=== PATIENT | female | born 1995 | race Caucasian/White ===

== ENCOUNTER 2025-07-31 08:01 | Inpatient (IN) ==
[2025-07-31] MEDS ORDERED: OXYTOCIN 30 UNITS/NSS 30 UNITS/500 ML BAG IV PRN (08:04)
[2025-07-31] MEDS ORDERED: LIDOCAINE 1% LOCAL 20 ML VIAL INFIL PRN (08:04)
--- NOTE | 2025-07-31 08:25 | History & Physical Report ---
Date of Service July 31, 2025 Assessment & Plan (1) 40 weeks gestation of : Plan Zamarripa bulb out Pitocin Patient would like epidural Arom when indicated Monitor tracing, category 1 Admission and Anticipated Discharge Date Admission Date: July 31, 2025 History of Present Illness Chief Complaint: IOL Primary Care Provider: Gelacio Duval PA-C 30 yo at 40w5d admitted for IOL for postdates. No complications during per patient. She takes vitamins, Celexa, and pantoprazole throughout , no other medications. Contractions: every 10-15 min Fluid loss: none Bloody show: none FM: present Zamarripa bulb placed yesterday, fell out spontaneously yesterday. Denies CAPUTO, CP, N/V/D. Reports she recently had a viral infection and feels slight SOB which has improved over time. Patient also reports left lower extremity tenderness since 37 weeks . GBS neg, RH+ Allergies Allergy/AdvReac Type Severity Reaction Status Date / Time pollen extracts Allergy Intermediate ITCHY Verified 07/30/25 13:50 EYES, SNEEZING, CONGESTION Iodinated Contrast Media Allergy Mild hives Verified 07/30/25 13:50 MOSQUITO & OTHER INSECT BITES Allergy Severe SEVERE Uncoded 07/30/25 13:50 SWELLING AT SITES Home Medications Medication Instructions Recorded Confirmed Type citalopram 20 mg tablet 20 mg PO QAM 08/30/22 07/31/25 History PNV no.[id number] 1 cap PO DAILY 12/13/24 07/31/25 History [ Gummies] Patient History Medical History History of chicken pox Anxiety IBS (irritable bowel syndrome) Allergic rhinitis Recurrent acute sinusitis Acquired deviated nasal septum Nausea after anesthesia had to stay in hospital longer following adenoidectomy Hx of fracture of clavicle at , "had sx to fix it, still have back and neck pain from this" Hx of chest pain w/palpiations; "due to panic attacks on 06/20/22, taken to [place] ER, unable to be seen-sent home; followed up w/ PCP">"felt it was due to her anxiety/panic attack" History of anxiety Surgical History H/O nasal septoplasty S/P wisdom tooth extraction History of adenoidectomy History of esophagogastroduodenoscopy (EGD) Family History Grandfather (Paternal) Hearing loss Father Hypertension Family/Other Stroke maternal grandparent-patient unsure which one. Grandmother (Paternal) Environmental allergies Asthma Colorectal cancer Mother Environmental allergies Grandfather (Maternal) Heart disease Grandmother (Maternal) Heart disease Other No family history of adverse response to anesthesia No family history of bleeding disorder Denies family history of Ovarian cancer Breast cancer Social History Smoking Status: Never smoker Second Hand Exposure: No; Do You Dip or Chew Tobacco: No; Hx Alcohol Use: Yes Alcohol type: wine Alcohol Intake Frequency: 2-4 x/Month Hx Substance Use: No Preferred Language: [place] Communication Ability: Effective Student Life Advisor Required: No Beliefs That Will Affect Care: None marital status: marital status details: Wes Ureña (28) [phone] Current Living Situation: Spouse Current Living Situation Comment: lives with spouse, cats-spouse changing litter current occupational status: employed 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[employer] Other Information That Helps Us Care for You: No Feels Safe at Home: Yes Safety Concerns: Feels Safe At This Time Assistive Devices: None OB History : 1 Full term: 0 Premature: 0 Total Number of Induced Abortions: 0 Total Number of Spontaneous Abortions: 0 Ectopics: 0 Multiple births: 0 Number of Living Children: 0 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 Skin: warm, dry, intact HEENT: NC/AT, anicteric sclera, conjunctiva without injection, moist mucus membranes Heart: +S1/S2, regular, no m/r/g Lungs: equal air entry bilaterally, no rales/rhonchi/wheezes Abd: +BS, soft, NT/ND, gravid uterus Cervical: 4|70|-3|, uterus soft mid, estimated weight 7-8 lbs Ext: warm, no clubbing/cyanosis or edema Neuro: nonfocal, patient AA&O x 4, speech intact, no facial droop, moving all extremities on command. : FHR baseline 150, moderate variability, accelerations present, decelerations absent Results & Data Vital Signs (Past 12 Hours) Vital Signs Pulse BP 07/31/25 08:18 86 129/77 Laboratory Results OB Labs: Blood Type O Positive 12/20/24 Antibody Screen NEGATIVE 12/20/24 Hgb 12.9 g/dl (12.0-16.0) 05/05/25 Hct 39.7 % (37.0-47.0) 05/05/25 MCV 89.7 fL (80.0-100.0) 12/20/24 Plt Count 315 K/uL (130-400) 12/20/24 Rubella IgG Antibody Equivocal (Immune) L 12/20/24 Treponema pallidum Ab Negative (Negative) 05/05/25 Hep Bs Antigen Negative (Negative) 12/20/24 Hepatitis C Antibody Negative (Negative) 12/20/24 HIV 1&2 Ab/P24 Ag 4thGn Negative (Negative) 12/20/24 Glucose 1 Hr 50 gm 100 mg/dl (70-130) 05/05/25 OB Optional Labs: Chlamydia trachomatis RNA Not Detected (NotDetected) 12/20/24 Neisseria gonorrhoeae RNA Not Detected (NotDetected) 12/20/24 Thyroid Stimulating Hormone (TSH) 1.317 uIu/ml (0.300-4.500) 04/15/24 Labs Reviewed: low risk panorama--[facility] declined carrier screening--[facility] declined afp--[facility] Supervising Physician Co-Signing Physician Notes Resident Physician Supervision Note: I interviewed and examined the patient. Discussed with Dr. Quintana and agree with findings and plan as documented in the note. Any exceptions or clarifications are listed here: None Documented By: Mary Daily, Resident Activity Tracking Resident Involvement: Resident Care Provided Care Provided: OB Delivery
[2025-07-31 09:03] LABS: Hematocrit (blood only) 37.8 % (37.0-47.0); Hemoglobin 13.1 g/dL (12.0-16.0); Mean Corpuscular Hemoglobin 30.6 pg (25.0-34.0); Mean Corpuscular Volume 88.3 fL (80.0-100.0); Platelet Count 240 K/uL (130-400); RDW Standard Deviation 42.3 fL (36.4-46.3); Red Blood Count 4.28 M/uL (4.20-5.40); White Blood Count 13.29 K/ul (4.8-10.8)
[2025-07-31] MEDS: OXYTOCIN 30 UNITS/NSS 30 UNITS/500 ML BAG IV PRN (09:22)
[2025-07-31] MEDS: LACTATED RINGER'S 1,000 ML IV PRN (09:22)
[2025-07-31] MEDS ORDERED: NALOXONE HCL 0.4 MG/1 ML VIAL/CARP IV PRN ×2 (11:54→17:20)
[2025-07-31] MEDS ORDERED: ROPIVACAINE 0.5% PF 5 MG/ML 20 ML VIAL EPI PRN (11:54)
[2025-07-31] MEDS ORDERED: diphenhydrAMINE 50 MG/ML VIAL IV PRN ×2 (11:54→17:20)
[2025-07-31] MEDS ORDERED: fentANYL 2 MCG/ML BUPIVacaine 0.125%-NSS 100ML BAG EPI PRN (11:54)
[2025-07-31] MEDS ORDERED: ONDANSETRON INJ 2 MG/ML 2 ML VIAL IV PRN ×2 (11:54→17:20)
[2025-07-31] MEDS ORDERED: SODIUM CHLORIDE 0.9% PF INJ 10 ML VIAL EPI PRN (11:54)
[2025-07-31] MEDS ORDERED: NALBUPHINE HCL INJ 10 MG/ML AMP IV PRN ×2 (11:54→17:20)
[2025-07-31] MEDS ORDERED: LIDOCAINE 2% MPF LOCAL 5 ML VIAL EPI PRN (11:54)
[2025-07-31] MEDS ORDERED: NALOXONE HCL 1 MG in SODIUM CHLORIDE 0.9% 1,000 ML IV PRN ×2 (11:54→17:20)
--- NOTE | 2025-07-31 11:55 | Anesthesiology Consultation ---
Date of Service July 31, 2025 Assessment & Plan (1) Encounter for pre-operative examination: Chart Review Chart Review: Patient NOT seen in Pre Admission Testing and Acceptable Risk for Labor Epidural Consults Requested none History Height/Weight Height: 5 ft 7 in Weight: 90.718 kg Allergies Allergy/AdvReac Type Severity Reaction Status Date / Time pollen extracts Allergy Intermediate ITCHY Verified 07/30/25 13:50 EYES, SNEEZING, CONGESTION Iodinated Contrast Media Allergy Mild hives Verified 07/30/25 13:50 MOSQUITO & OTHER INSECT BITES Allergy Severe SEVERE Uncoded 07/30/25 13:50 SWELLING AT SITES Medications Home Medications Medication Instructions Recorded Confirmed Last Taken citalopram 20 mg tablet 20 mg PO QAM 08/30/22 07/31/25 07/31/25 PNV no.[id number] 1 cap PO DAILY 12/13/24 07/31/25 07/31/25 [ Gummies] Active Medications Generic Name Dose Route Start Last Admin Trade Name Freq PRN Reason Stop Dose Admin Oxytocin 30 units in 500 mls @ 4 mls/hr 07/31/25 08:04 07/31/25 11:15 Pitocin 30 Units/Nss IV 08/02/25 08:03 0.24 units/hr .Q24H PRN 4 mls/hr Labor Induction/Augmentation Titration Protocol 0.24 UNITS/HR Lactated Ringer's 1,000 mls @ 125 mls/hr 07/31/25 08:04 07/31/25 10:08 Lr IV 08/02/25 08:03 125 mls/hr .Q8H PRN Infusion L&D Protocol Protocol Past Medical History Medical History History of chicken pox Anxiety IBS (irritable bowel syndrome) Allergic rhinitis Recurrent acute sinusitis Acquired deviated nasal septum Nausea after anesthesia had to stay in hospital longer following adenoidectomy Hx of fracture of clavicle at , "had sx to fix it, still have back and neck pain from this" Hx of chest pain w/palpiations; "due to panic attacks on 06/20/22, taken to [place] ER, unable to be seen-sent home; followed up w/ PCP">"felt it was due to her anxiety/panic attack" History of anxiety Past Family History Family History Grandfather (Paternal) Hearing loss Father Hypertension Family/Other Stroke maternal grandparent-patient unsure which one. Grandmother (Paternal) Environmental allergies Asthma Colorectal cancer Mother Environmental allergies Grandfather (Maternal) Heart disease Grandmother (Maternal) Heart disease Other No family history of adverse response to anesthesia No family history of bleeding disorder Denies family history of Ovarian cancer Breast cancer Past Surgical History Surgical History H/O nasal septoplasty S/P wisdom tooth extraction History of adenoidectomy History of esophagogastroduodenoscopy (EGD) Social History Smoking Status: Never smoker Do You Dip or Chew Tobacco: No Hx Alcohol Use: Yes Alcohol type: wine alcohol intake frequency: holidays/special occasions only Hx Substance Use: No substance use type: does not use Physical Exam Vital Signs Last Vital Signs Temp 36.9 C 07/31/25 08:20 Pulse 86 07/31/25 08:18 Resp 16 07/31/25 08:20 BP 129/77 07/31/25 08:18 Testing Laboratory Results 07/31/25 08:44
[2025-07-31] MEDS: LIDOCAINE 2%/EPINEPHRINE 1:200,000 20 ML PF EPI STA (12:31)
[2025-07-31] MEDS: BUPIVACAINE 0.25% PF 30 ML VIAL EPI PRN (12:31)
[2025-07-31] MEDS: fentANYL 2 MCG/ML BUPIVacaine 0.125%-NSS 100ML BAG ONE (12:32)
[2025-07-31] MEDS: LIDOCAINE 2%/EPINEPHRINE 1:200,000 20 ML PF ONE (12:32)
[2025-07-31] MEDS: SODIUM CHLORIDE 0.9% PF INJ 10 ML VIAL ONE (13:13)
[2025-07-31] MEDS: BUPIVACAINE 0.25% PF 30 ML VIAL ONE (13:13)
[2025-07-31] MEDS: SODIUM CHLORIDE 0.9% PF INJ 10 ML VIAL EPI STA (13:14)
[2025-07-31] MEDS: BUPIVACAINE 0.25% PF 30 ML VIAL EPI STA (13:14)
--- NOTE | 2025-07-31 16:01 | History & Physical Bridge Note ---
Date of Service July 31, 2025 History & Physical Bridge Note I have examined the patient, reviewed the History & Physical and in the interval since the performance of the History & Physical I have noted the following changes of clinical significance: Prolonged deceleration of FHT - since this is the 3rd episode of this, unable to give pitocin to induce labor, will proceed to OR. Discussed consent with patient earlier after last decel, will move to OR now.
[2025-07-31] MEDS ORDERED: LIDOCAINE 2%/EPINEPHRINE 1:200,000 20 ML PF ONE (16:02)
[2025-07-31] MEDS: CITRIC ACID/SODIUM CITRATE 15 ML UDC PO STA (16:03)
[2025-07-31] MEDS: AZITHROMYCIN 500 MG/255 ML BAG IV ONE (16:22)
[2025-07-31] MEDS ORDERED: DEXAMETHASONE SOD INJ 4 MG/ML VIAL ONE (16:24)
[2025-07-31] MEDS ORDERED: ONDANSETRON INJ 2 MG/ML 2 ML VIAL ONE (16:24)
[2025-07-31] MEDS ORDERED: PHENYLEPHRINE HCL 25 MG/250 ML NSS IV ONE (16:24)
[2025-07-31] MEDS ORDERED: PHENYLEPHRINE 100MCG/ML 5ML SYR ONE (16:24)
[2025-07-31] MEDS ORDERED: MoRPHine SULFATE PF 1 MG/ML 10 ML AMP/VIAL ONE (16:28)
[2025-07-31] MEDS ORDERED: ceFAZolin 330 MG/ML 1 GM VIAL ONE (16:29)
[2025-07-31 16:58] LABS: Base Excess Cord Arterial Bld 0.1 mEq/L (-9-1.8); CO2 Cord Arterial Blood 60 mmHg (39.1-73.5); HCO3 Cord Arterial Blood 28 mmol/L (19.7-28.5); Oxygen Sat Cord Arterial Blood < 60.0 % (<60); PO2 Cord Arterial Blood < 20 mmHg (4.1-31.7); pH Cord Arterial Blood 7.28 (7.1-7.38)
[2025-07-31 17:00] LABS: Base Excess Cord Venous Blood -0.7 mEq/L (-7.7-1.9); Cord Venous Blood PO2 32 mmHg (14.1-43.3); O2 Saturation Cord Venous Bld 63.9 % (<68)
[2025-07-31] MEDS: OXYTOCIN 20 UNITS/LR 1,002 ML IV SCH (17:00)
--- NOTE | 2025-07-31 17:19 | Anesthesiology Progress Note ---
Date of Service July 31, 2025 Anesthesia Post Procedure Vital Signs Vital Signs: Temp Pulse Resp BP Pulse Ox 07/31/25 17:14 96 07/31/25 17:14 84 07/31/25 17:14 92 07/31/25 17:14 87 07/31/25 17:13 82 07/31/25 17:13 114/55 L 07/31/25 16:05 100 07/31/25 16:05 98 H 07/31/25 16:00 98 07/31/25 16:00 100 H 07/31/25 15:55 96 07/31/25 15:55 110 H 07/31/25 15:50 99 07/31/25 15:50 99 H 07/31/25 15:49 94 H 07/31/25 15:49 128/70 07/31/25 15:45 98 07/31/25 15:45 119 H 07/31/25 15:40 99 07/31/25 15:40 104 H 07/31/25 15:36 95 H 07/31/25 15:36 127/76 07/31/25 15:35 97 07/31/25 15:35 97 H 07/31/25 15:30 99 07/31/25 15:30 109 H 07/31/25 15:25 99 07/31/25 15:25 108 H 07/31/25 15:21 96 H 07/31/25 15:21 136/79 07/31/25 15:20 99 07/31/25 15:20 107 H 07/31/25 15:15 98 07/31/25 15:15 95 H 07/31/25 15:10 97 07/31/25 15:10 106 H 07/31/25 15:05 100 07/31/25 15:05 101 H 07/31/25 15:05 125/83 07/31/25 15:00 16 07/31/25 15:00 16 07/31/25 15:00 98 07/31/25 15:00 95 H 07/31/25 14:55 99 07/31/25 14:55 86 07/31/25 14:50 100 07/31/25 14:50 88 07/31/25 14:49 92 H 07/31/25 14:49 127/73 07/31/25 14:45 99 07/31/25 14:45 85 07/31/25 14:40 98 07/31/25 14:40 87 07/31/25 14:36 88 07/31/25 14:36 127/77 07/31/25 14:35 99 07/31/25 14:35 92 H 07/31/25 14:30 16 07/31/25 14:30 16 07/31/25 14:30 99 07/31/25 14:30 88 07/31/25 14:25 100 07/31/25 14:25 77 07/31/25 14:20 100 07/31/25 14:20 78 07/31/25 14:20 74 07/31/25 14:20 114/63 07/31/25 14:15 100 07/31/25 14:15 82 07/31/25 14:10 100 07/31/25 14:10 82 07/31/25 14:05 100 07/31/25 14:05 95 H 07/31/25 14:04 96 H 07/31/25 14:04 115/65 07/31/25 14:00 16 07/31/25 14:00 36.9 C 16 07/31/25 14:00 100 07/31/25 14:00 83 07/31/25 13:55 100 07/31/25 13:55 77 07/31/25 13:50 100 07/31/25 13:50 87 07/31/25 13:49 85 07/31/25 13:49 109/60 07/31/25 13:45 98 07/31/25 13:45 74 07/31/25 13:40 98 07/31/25 13:40 79 07/31/25 13:35 98 07/31/25 13:35 74 07/31/25 13:34 70 07/31/25 13:34 114/75 07/31/25 13:30 16 07/31/25 13:30 16 07/31/25 13:30 97 07/31/25 13:30 70 07/31/25 13:25 96 07/31/25 13:25 76 07/31/25 13:22 91 H 07/31/25 13:22 118/64 07/31/25 13:20 97 07/31/25 13:20 72 07/31/25 13:15 99 07/31/25 13:15 75 07/31/25 13:10 98 07/31/25 13:10 85 07/31/25 13:05 100 07/31/25 13:05 84 07/31/25 13:00 16 07/31/25 13:00 16 07/31/25 13:00 99 07/31/25 13:00 83 07/31/25 12:57 82 07/31/25 12:57 104/59 L 07/31/25 12:55 100 07/31/25 12:55 103 H 07/31/25 12:52 84 07/31/25 12:52 110/58 L 07/31/25 12:50 98 07/31/25 12:50 104 H 07/31/25 12:47 93 H 07/31/25 12:47 114/61 07/31/25 12:45 97 07/31/25 12:45 89 07/31/25 12:45 119/63 07/31/25 12:43 94 07/31/25 12:43 82 07/31/25 12:43 123/63 07/31/25 12:41 98 H 07/31/25 12:41 117/66 07/31/25 12:40 16 07/31/25 12:40 16 07/31/25 12:40 98 07/31/25 12:40 85 07/31/25 12:39 85 07/31/25 12:39 119/63 07/31/25 12:38 16 07/31/25 12:38 16 07/31/25 12:37 89 07/31/25 12:37 117/58 L 07/31/25 12:36 16 07/31/25 12:36 16 07/31/25 12:35 99 07/31/25 12:35 86 07/31/25 12:35 91 H 07/31/25 12:35 125/59 L 07/31/25 12:34 16 07/31/25 12:34 16 07/31/25 12:32 16 07/31/25 12:32 16 07/31/25 12:31 36.9 C 07/31/25 12:30 97 07/31/25 12:30 92 H 07/31/25 12:30 129/75 07/31/25 12:27 83 07/31/25 12:27 128/75 07/31/25 12:25 100 07/31/25 12:25 103 H 07/31/25 12:20 98 07/31/25 12:20 96 H 07/31/25 12:15 99 07/31/25 12:15 105 H 07/31/25 12:10 100 07/31/25 12:10 98 H 07/31/25 12:05 100 07/31/25 12:05 97 H 07/31/25 12:00 100 07/31/25 12:00 90 07/31/25 08:20 36.9 C 16 07/31/25 08:18 36.9 C 86 129/77 Pain Intensity Lower Abdomen: Pain Intensity: 0 Transfer of Care Handoff Completed per policy Notes Mental Status: alert / awake / arousable and participated in evaluation Patient Amnestic to Procedure: Yes Nausea / Vomiting: adequately controlled Pain: adequately controlled Airway Patency, RR, SpO2: stable & adequate BP & HR: stable & adequate Hydration State: stable & adequate Neuraxial Anesthesia: was administered and sensory block is resolving Anesthetic Complications: no major complications apparent and Pt Satisfied with anesthetic care
[2025-07-31] MEDS ORDERED: MoRPHine SULFATE PF 1 MG/ML 10 ML AMP/VIAL EPI ONE (17:20)
[2025-07-31] MEDS ORDERED: HYDROmorphone INJ 0.5 MG/0.5 ML SYR IV PRN (17:20)
[2025-07-31] MEDS ORDERED: LACTATED RINGER'S 500 ML IV PRN (17:20)
[2025-07-31] MEDS ORDERED: PROMETHAZINE 6.25 MG/50.25 ML BAG IV PRN (17:20)
--- NOTE | 2025-07-31 17:20 | Anesthesia Procedure Note ---
Date of Service July 31, 2025 Anesthesia Post Epidural Note Vital Signs Vital Signs: Temp Pulse Resp BP Pulse Ox 36.9 C 84 16 114/55 L 96 07/31/25 14:00 07/31/25 17:14 07/31/25 15:00 07/31/25 17:13 07/31/25 17:14 Pain Intensity Lower Abdomen: Pain Intensity: 0 Notes Mental Status: alert / awake / arousable and participated in evaluation Patient Amnestic to Procedure: No Nausea / Vomiting: adequately controlled Pain: adequately controlled Airway Patency, RR, SpO2: stable & adequate BP & HR: stable & adequate Hydration State: stable & adequate Neuraxial Anesthesia: was administered and sensory block is resolving Anesthetic Complications: no major complications apparent and Pt Satisfied with anesthetic care Epidural: Removed without complications and With tip intact
[2025-07-31] MEDS: COUGH DROP (SUGAR FREE) LOZ 24 LOZ/1 BOX BUCCAL ONE (17:28)
[2025-07-31] MEDS ORDERED: DC INTRASPINAL MORPHINE SCH (17:30)
[2025-07-31] MEDS ORDERED: NO NARCOTICS OR SEDATIVES SCH (17:30)
[2025-07-31] MEDS ORDERED: SODIUM CHLORIDE 0.9% 1,000 ML IV SCH (17:30)
--- NOTE | 2025-07-31 17:35 | Operative Report ---
Post Operative Report Pre & Post Diagnosis Operation Date: 07/31/25 16:15 Pre-Op Diagnosis: 1. intolerance to labor Post-Op Diagnosis: Same as preoperative I identified the patient and participated in the time-out.: Yes Procedure Operation Date: 07/31/25 16:15 Actual Procedures p Primary low Transverse Section in [facility] at 1626 on 07/31/25 - Mary Daily DO Surgeon Mary Daily DO Stack Clerk Dr Racheal Quintana PGY1, Nila Mcneil RN Quantitative Blood Loss (QBL) 475 Findings See Below Viable male , apgars 7/9. Weight 9#0oz. Specimens placenta, cord blood, cord gas Drains richmond clear yellow Anesthesia Type Labor Epidural Complications none Disposition Accompanied Patient To Recovery: No Disposition: L&D Indications 30yo @ 40 5/7, IOL for postdates, began to have prolonged decelerations of heart rate, unable to continue/restart pitocin due to this into lerance to labor, decision was made to proceed to OR. Description of Procedure The patient was seen in her labor and delivery room, risks benefits and alternatives to surgery were reviewed. Informed consent obtained. Questions were answered. She was taken to the operating room, spinal anesthesia was administered. She was then prepared and draped in the usual sterile fashion in the supine position with a leftward tilt. Timeout was confirmed. A Pfannenstiel skin incision was made with a scalpel, and carried through to the underlying layer of fascia. Fascia was nicked at midline, and this incision was extended bilaterally. The superior aspect of the fascial incision was grasped with Silvia clamps x2, elevated off the underlying rectus abdominis muscles, and dissected sharply and bluntly. In similar fashion, the inferior aspect of the fascial incision was dissected. The rectus abdominis muscles were , and the peritoneum was entered bluntly digitally. This was extended bilaterally. The bladder flap was taken down carefully using Metzenbaum scissors. Using a new scalpel, a low transverse uterine incision was created. Clear amniotic fluid noted. The was delivered from a cephalic presentation. The head delivered, followed by shoulders and body. Spontaneous cry on the field. The cord was doubly clamped and cut, and the infant was handed off to the waiting shoe parts molder. A segment was retained for cord gases. Cord blood was obtained. The placenta was delivered spontaneously intact. The uterus was exteriorized, and cleared of all clots and debris. The hysterotomy incision was reapproximated using 0 Vicryl in a running locked stitch. A second layer of the same suture was used to imbricate the incision. Posterior uterus was evaluated and normal. The uterus was returned to the abdomen, and gutters were cleared of clots and debris. Excellent hemostasis was observed. The fascial incision was reapproximated using 0 Vicryl in a running stitch. The subcutaneous tissue was irrigated, and reapproximated using 2-0 plain gut in a running stitch. The skin was reapproximated using 4-0 Vicryl in a running subcuticular stitch. Steri-Strips and a bandage were applied. The patient tolerated the procedure well, and will be taken to the recovery area in stable and good condition. I attest to the content of the Intraoperative Record and any orders documented therein. Any exceptions are noted below. OB Procedure Charges 56667
[2025-07-31] MEDS ORDERED: SENNA 8.6 MG TAB PO PRN (17:49)
[2025-07-31] MEDS ORDERED: HYDROCORTISONE ACETATE 25 MG SUPP PR PRN (17:49)
[2025-07-31] MEDS ORDERED: BENZOCAINE 20% SPRY 85 APPLN/85 GM CAN EXT PRN (17:49)
[2025-07-31] MEDS ORDERED: CALCIUM CARBONATE 500 MG CHEWABLE TAB PO PRN (17:49)
[2025-07-31] MEDS ORDERED: LACTATED RINGER'S 1,000 ML IV SCH (17:49)
[2025-07-31] MEDS ORDERED: MAGNESIUM HYDROXIDE SUSP 30 ML UDC PO PRN (17:49)
[2025-07-31] MEDS ORDERED: DIPHTHER/TETAN/PERTUS Vaccine (Tdap, Adol/Adult) 0.5mL IM ONE (17:49)
[2025-07-31] MEDS: KETOROLAC 30 MG/ML VIAL IV SCH (18:01)
[2025-07-31] MEDS: DOCUSATE SODIUM 100 MG CAP PO SCH (21:42)
[2025-07-31] MEDS: SIMETHICONE 80 MG CHEW PO SCH (23:40)
[2025-07-31] MEDS: ACETAMINOPHEN 325 MG TAB PO SCH (23:41)
--- NOTE | 2025-08-01 06:25 | Obstetrical Progress Note ---
Date of Service August 01, 2025 Assessment & Plan (1) care following delivery: Plan 30 yo post- day 1 s/p Feels well today. Vital signs stable Continue post- care Encourage ambulation and Pain controlled with ibuprofen Hgb stable Admission and Anticipated Discharge Date Admission Date: July 31, 2025 Supervising Physician Co-Signing Physician Notes Resident Physician Supervision Note: I was present with Dr. Quintana during the history and exam. I discussed the case with the resident and agree with the findings and plan as documented in the note. Any exceptions or clarifications are listed here: POD#1 doing well, continue routine postop care. Documented By: Mary Daily, DO Subjective 30 yo post- day 1 s/p Ambulation: ambulating normally Voiding: not voided yet Passing Gas:: Yes Passing Stool:: No Diet Tolerance:: regular diet Lochia:: Small Feeding Type:: breast and bottle feeding Current Pain Level: 5/10 Resting comfortably this AM in NAD. Denies CAPUTO, CP, SOB, N/V/D, LE pain/swelling. Review of Systems Review of Systems: All systems reviewed & are unremarkable except as noted in HPI & below Physical Exam Physical Exam: General: patient resting comfortably, NAD, non-toxic in appearance, AA&O x 4, answers questions appropriately. Skin: warm, dry, intact HEENT: NC/AT, anicteric sclera, conjunctiva without injection, moist mucus membranes. Heart: +S1/S2, regular, no m/r/g Lungs: equal air entry bilaterally, no rales/rhonchi/wheezes Abd: +BS, soft, NT/ND, uterine fundus firm at umbilicus, caesarean incision dressing C/D/I. Ext: warm, no clubbing/cyanosis or edema, Jose Antonio's neg. Neuro: nonfocal, patient AA&O x 4, speech intact, no facial droop, moving all extremities on command. Results & Data Vital Signs (Past 12 Hours) Vital Signs Temp Pulse Pulse Resp BP BP Pulse Ox 08/01/25 06:07 18 97 08/01/25 05:00 18 97 08/01/25 04:00 18 97 08/01/25 03:49 36.5 C 67 18 118/76 95 08/01/25 03:00 18 96 08/01/25 02:00 18 96 08/01/25 01:00 16 97 08/01/25 00:15 18 97 07/31/25 23:16 18 97 07/31/25 23:08 37 C 87 18 117/74 96 07/31/25 22:00 18 97 07/31/25 21:00 18 98 07/31/25 20:03 36.7 C 87 18 113/75 98 07/31/25 20:00 18 98 07/31/25 19:44 98 07/31/25 19:44 86 07/31/25 19:39 98 07/31/25 19:39 87 07/31/25 19:34 97 07/31/25 19:34 89 07/31/25 19:30 37.5 C 18 07/31/25 19:29 98 07/31/25 19:29 83 07/31/25 19:29 83 07/31/25 19:29 125/69 07/31/25 19:24 97 07/31/25 19:24 87 07/31/25 19:19 98 07/31/25 19:19 82 07/31/25 19:14 98 07/31/25 19:14 97 H 07/31/25 19:09 98 07/31/25 19:09 94 H 07/31/25 19:04 99 07/31/25 19:04 84 07/31/25 19:00 20 07/31/25 18:59 97 07/31/25 18:59 92 H 07/31/25 18:59 145/64 H 07/31/25 18:54 98 07/31/25 18:54 102 H 07/31/25 18:49 98 07/31/25 18:49 88 07/31/25 18:44 97 07/31/25 18:44 86 07/31/25 18:39 95 07/31/25 18:39 95 H 07/31/25 18:34 96 07/31/25 18:34 90 07/31/25 18:30 16 07/31/25 18:29 95 07/31/25 18:29 86 07/31/25 18:29 111/74 O2 Del Method 08/01/25 06:07 08/01/25 05:00 08/01/25 04:00 08/01/25 03:49 Room Air 08/01/25 03:00 08/01/25 02:00 08/01/25 01:00 08/01/25 00:15 07/31/25 23:16 07/31/25 23:08 Room Air 07/31/25 22:00 07/31/25 21:00 07/31/25 20:03 Room Air 07/31/25 20:00 07/31/25 19:44 07/31/25 19:44 07/31/25 19:39 07/31/25 19:39 07/31/25 19:34 07/31/25 19:34 07/31/25 19:30 07/31/25 19:29 07/31/25 19:29 07/31/25 19:29 07/31/25 19:29 07/31/25 19:24 07/31/25 19:24 07/31/25 19:19 07/31/25 19:19 07/31/25 19:14 07/31/25 19:14 07/31/25 19:09 07/31/25 19:09 07/31/25 19:04 07/31/25 19:04 07/31/25 19:00 07/31/25 18:59 07/31/25 18:59 07/31/25 18:59 07/31/25 18:54 07/31/25 18:54 07/31/25 18:49 07/31/25 18:49 07/31/25 18:44 07/31/25 18:44 07/31/25 18:39 07/31/25 18:39 07/31/25 18:34 07/31/25 18:34 07/31/25 18:30 07/31/25 18:29 07/31/25 18:29 07/31/25 18:29 Laboratory Results OB Labs: Blood Type O Positive 12/20/24 Antibody Screen NEGATIVE 12/20/24 Hgb 12.9 g/dl (12.0-16.0) 05/05/25 Hct 39.7 % (37.0-47.0) 05/05/25 MCV 89.7 fL (80.0-100.0) 12/20/24 Plt Count 315 K/uL (130-400) 12/20/24 Rubella IgG Antibody Equivocal (Immune) L 12/20/24 Treponema pallidum Ab Negative (Negative) 05/05/25 Hep Bs Antigen Negative (Negative) 12/20/24 Hepatitis C Antibody Negative (Negative) 12/20/24 HIV 1&2 Ab/P24 Ag 4thGn Negative (Negative) 12/20/24 Glucose 1 Hr 50 gm 100 mg/dl (70-130) 05/05/25 OB Optional Labs: Chlamydia trachomatis RNA Not Detected (NotDetected) 12/20/24 Neisseria gonorrhoeae RNA Not Detected (NotDetected) 12/20/24 Thyroid Stimulating Hormone (TSH) 1.317 uIu/ml (0.300-4.500) 04/15/24 Labs Reviewed: low risk panorama--[facility] declined carrier screening--[facility] declined afp--[facility] Resident Activity Tracking Resident Involvement: Resident Care Provided Care Provided: OB Delivery
[2025-08-01 07:09] LABS: Hematocrit (blood only) 33.0 % (37.0-47.0); Hemoglobin 11.2 g/dL (12.0-16.0); Immature Granulocytes # (auto) 0.15 K/uL (0.01-0.20); Immature Granulocytes % (auto) 0.9 %; Mean Corpuscular Hemoglobin 29.8 pg (25.0-34.0); Mean Corpuscular Volume 87.8 fL (80.0-100.0); Platelet Count 201 K/uL (130-400); RDW Standard Deviation 41.3 fL (36.4-46.3); Red Blood Count 3.76 M/uL (4.20-5.40); White Blood Count 16.99 K/ul (4.8-10.8)
[2025-08-01] MEDS: PRENATAL VITAMIN 1 TAB PO SCH (08:01)
[2025-08-01] MEDS: CITALOPRAM 20 MG TAB PO SCH (08:01)
[2025-08-01] MEDS: FERROUS SULFATE 325 MG TAB PO SCH (08:01)
[2025-08-01] MEDS: NALOXONE HCL 0.08 MG in SYRINGE 1.8 ML IV PRN (08:16)
[2025-08-01] MEDS ORDERED: ONDANSETRON INJ 2 MG/ML 2 ML VIAL IV PRN (11:20)
[2025-08-01] MEDS ORDERED: diphenhydrAMINE 50 MG/ML VIAL IV PRN (11:20)
[2025-08-01] MEDS ORDERED: HYDROmorphone INJ 0.5 MG/0.5 ML SYR IV PRN (11:20)
[2025-08-01] MEDS ORDERED: diphenhydrAMINE Capsule 25 MG CAP PO PRN (11:20)
[2025-08-01] MEDS ORDERED: PROMETHAZINE 12.5 MG/50.5 ML BAG IV PRN (11:20)
[2025-08-01 14:31] VITALS: RESP 16
[2025-08-01] MEDS ORDERED: KETOROLAC 30 MG/ML VIAL IV PRN (17:31)
[2025-08-01] MEDS: IBUPROFEN 600 MG TAB PO SCH (17:53)
[2025-08-02 06:21] VITALS: O2SAT 98
--- NOTE | 2025-08-02 06:22 | Obstetrical Progress Note ---
Date of Service August 02, 2025 Assessment & Plan (1) care following delivery: Plan 30 yo post- day 2 s/p Feels well today. Vital signs stable Continue post- care Encourage ambulation and Pain controlled with ibuprofen Hgb stable Discharge today, follow up with Dr. Daily in 6 weeks for appt Admission and Anticipated Discharge Date Admission Date: July 31, 2025 Supervising Physician Co-Signing Physician Notes Resident Physician Supervision Note: I interviewed and examined the patient. Discussed with Dr. Quintana and agree with findings and plan as documented in the note. Any exceptions or clarifications are listed here: Doing well. Desires d/c . meeting goals. Instructions given. Documented By: Alexandra Monroe MD, FACOG Subjective 30 yo post- day 2 s/p Ambulation: ambulating normally Voiding: not voided yet Passing Gas:: Yes Passing Stool:: Yes Diet Tolerance:: regular diet Lochia:: Small Feeding Type:: breast and bottle feeding Current Pain Level: 3/10 Resting comfortably this AM in NAD. Denies CAPUTO, CP, SOB, N/V/D, LE pain/swelling. Review of Systems Review of Systems: All systems reviewed & are unremarkable except as noted in HPI & below Physical Exam Physical Exam: General: patient resting comfortably, NAD, non-toxic in appearance, AA&O x 4, answers questions appropriately. Skin: warm, dry, intact HEENT: NC/AT, anicteric sclera, conjunctiva without injection, moist mucus membranes. Heart: +S1/S2, regular, no m/r/g Lungs: equal air entry bilaterally, no rales/rhonchi/wheezes Abd: +BS, soft, NT/ND, uterine fundus firm at umbilicus, caesarean incision C/D/I. Ext: warm, no clubbing/cyanosis or edema, Jose Antonio's neg. Neuro: nonfocal, patient AA&O x 4, speech intact, no facial droop, moving all extremities on command. Results & Data Vital Signs (Past 12 Hours) Vital Signs Temp Pulse Resp BP Pulse Ox O2 Del Method 08/01/25 19:35 37 C 90 16 117/74 97 Room Air Laboratory Results OB Labs: Blood Type O Positive 12/20/24 Antibody Screen NEGATIVE 12/20/24 Hgb 12.9 g/dl (12.0-16.0) 05/05/25 Hct 39.7 % (37.0-47.0) 05/05/25 MCV 89.7 fL (80.0-100.0) 12/20/24 Plt Count 315 K/uL (130-400) 12/20/24 Rubella IgG Antibody Equivocal (Immune) L 12/20/24 Treponema pallidum Ab Negative (Negative) 05/05/25 Hep Bs Antigen Negative (Negative) 12/20/24 Hepatitis C Antibody Negative (Negative) 12/20/24 HIV 1&2 Ab/P24 Ag 4thGn Negative (Negative) 12/20/24 Glucose 1 Hr 50 gm 100 mg/dl (70-130) 05/05/25 OB Optional Labs: Chlamydia trachomatis RNA Not Detected (NotDetected) 12/20/24 Neisseria gonorrhoeae RNA Not Detected (NotDetected) 12/20/24 Thyroid Stimulating Hormone (TSH) 1.317 uIu/ml (0.300-4.500) 04/15/24 Resident Activity Tracking Resident Involvement: Resident Care Provided Care Provided: OB Delivery
[2025-08-02 07:26] LABS: Hematocrit (blood only) 34.9 % (37.0-47.0); Hemoglobin 11.6 g/dL (12.0-16.0)
[2025-08-02 10:03] VITALS: BP 137/99; TEMP 97.9
[2025-08-02 13:57] VITALS: PULSE 83
[2025-08-02] MEDS ORDERED: IBUPROFEN 600 MG TAB PO PRN (17:31)
[2025-08-02] MEDS ORDERED: ACETAMINOPHEN 325 MG TAB PO PRN (23:31)
--- NOTE | 2025-08-04 17:04 | Discharge Summary ---
Date of Service August 04, 2025 Admission HPI Per Admitting Provider 30 yo at 40w5d admitted for IOL for postdates. No complications during per patient. She takes vitamins, Celexa, and pantoprazole throughout , no other medications. Contractions: every 10-15 min Fluid loss: none Bloody show: none FM: present Zamarripa bulb placed yesterday, fell out spontaneously yesterday. Denies CAPUTO, CP, N/V/D. Reports she recently had a viral infection and feels slight SOB which has improved over time. Patient also reports left lower extremity tenderness since 37 weeks . GBS neg, RH+ Discharge Data Consultations 07/31/25 08:04 Consult Anesthesiology Stat Procedures Performed Operation Date: 07/31/25 16:15 Actual Procedures p Section in [facility] at 1626 on 07/31/25(Bilateral) - Mary Daily DO Hospital Course (1) care following delivery: Plan 30 yo post- day 2 s/p Feels well today. Vital signs stable Continue post- care Encourage ambulation and Pain controlled with ibuprofen Hgb stable Discharge today, follow up with Dr. Daily in 6 weeks for appt Supervising Physician Co-Signing Physician Notes Resident Physician Supervision Note: I interviewed and examined the patient. Discussed with Dr. Quintana and agree with findings and plan as documented in the note. Any exceptions or clarifications are listed here: Doing well. Desires d/c . meeting goals. Instructions given. Documented By: Alexandra Monroe MD, FACOG Coding Level of Care Code None Diagnoses care following delivery Z39.2
== END 2025-08-02 15:10 | disposition home or self-care (01) | DRG 788 ==
LOC: 4S1 08:01 → 4E2 20:28
DX: O99.344 Other mental disorders complicating childbirth; Z3A.40 40 weeks gestation of pregnancy; Z91.041 Radiographic dye allergy status; Z79.899 Other long term (current) drug therapy; F41.9 Anxiety disorder, unspecified; O48.0 Post-term pregnancy; O76 Abnormality in fetal heart rate and rhythm complicating labor and delivery; Z91.048 Other nonmedicinal substance allergy status; Z37.0 Single live birth